=== PATIENT | male | born 1985 | race Two or more races ===

== ENCOUNTER 2019-07-04 23:04 | Emergency (ER) | payer OTHER ==
[~2019-07-04] VITALS: Ht 165.1 cm; Wt 72.6 kg
== END 2019-07-05 00:40 ==
LOC: ER 23:06
DX: R07.89 Other chest pain (principal); I10 Essential (primary) hypertension

== ENCOUNTER 2020-02-24 01:09 | Emergency (ER) | payer MEDICAID, OTHER ==
[~2020-02-24] VITALS: Ht 170.2 cm; Wt 83.5 kg
--- NOTE | 2020-02-24 01:09 | NUR ---
PT AAOX4. AMBULATORY WITH STEADY GAIT. BIBRA, PER RA PT IS ETOH. PT IS AWAKE, ABLE TO ANSWER ALL QUESTIONS. NO ACUTE DISTRESS NOTED. PALCED IN BED 2, AT BEDSIDE.
--- NOTE | 2020-02-24 02:53 | NUR ---
Patient discharged to home in stable condition. Written and verbal after care instructions given. Patient verbalizes understanding of instruction. Pt ambulated in the ED with steady gait. vss.
[2020-02-24 05:40] VITALS: BP 137/72
== END 2020-02-24 05:40 | disposition home or self-care (01) ==
LOC: ER 01:11
DX: F10.129 Alcohol abuse with intoxication, unspecified (principal); I10 Essential (primary) hypertension; Y90.9 Presence of alcohol in blood, level not specified

== ENCOUNTER 2021-10-25 20:26 | Emergency (ER) | payer SELFPAY ==
[~2021-10-25] VITALS: Ht 177.8 cm; Wt 81.6 kg
--- NOTE | 2021-10-25 20:40 | NUR ---
SANTINO FROM THE [facility] FOR ETOH [id number]. PT AWAKE AND ALERT BREATHING EVEN AND UNLABORED. CHANGED INTO GOWN AND PLACED ON MONITOR AND V/S STABLE.
--- NOTE | 2021-10-25 21:36 | NUR ---
Patient discharged to home in stable condition. Written and verbal after care instructions given. Patient verbalizes understanding of instruction.
[2021-10-25 21:37] VITALS: BP 149/77
== END 2021-10-25 21:37 | disposition home or self-care (01) ==
LOC: ER 20:32
DX: F10.129 Alcohol abuse with intoxication, unspecified (principal); I10 Essential (primary) hypertension; Z60.2 Problems related to living alone; Y90.9 Presence of alcohol in blood, level not specified

== ENCOUNTER 2023-07-22 15:18 | Emergency (ER) | payer SELFPAY ==
[~2023-07-22] VITALS: Ht 177.8 cm; Wt 93.4 kg
[2023-07-22 16:41] LABS: BASOPHILS # (AUTO) 0.1 K/uL (0.0-0.2); EOSINOPHILS # (AUTO) 0.1 K/uL (0.0-0.7); HEMATOCRIT 43 % (39-51); HEMOGLOBIN 14.3 g/dL (13.5-17.5); LYMPHOCYTES # (AUTO) 2.6 K/uL (0.8-4.8); LYMPHOCYTES % (AUTO) 51.2 % (20.0-44.0); MEAN CORPUSCULAR HEMOGLOBIN 29 PG (26.0-33.0); MEAN CORPUSCULAR HGB CONC 34 g/dl (31.0-36.0); MEAN CORPUSCULAR VOLUME 87 fL (80-96); MONOCYTES # (AUTO) 0.5 K/uL (0.1-1.30); MONOCYTES % (AUTO) 10.7 % (2.0-12.0); NEUTROPHILS # (AUTO) 1.8 K/uL (1.8-8.9); NEUTROPHILS % (AUTO) 35.1 % (43.0-81.0); PLATELET COUNT (AUTO) 295 K/uL (150-450); RED BLOOD CELL COUNT(AUTO) 4.91 MIL/uL (4.5-6.0); RED CELL DISTRIBUTION WIDTH 14.7 % (11.5-15.0); WHITE BLOOD COUNT (AUTO) 5.1 K/uL (4.3-11.0)
[2023-07-22 17:49] LABS: CALCIUM, SERUM 8.7 mg/dL (8.5-10.1); CARBON DIOXIDE 22 mmol/L (21-32); CHLORIDE 108 mmol/L (98-107); CREATININE 1.2 mg/dL (0.6-1.3); GLUCOSE 137 mg/dL (74-106); POTASSIUM 3.3 mmol/L (3.5-5.1); SODIUM SERUM 144 mmol/L (136-145); UREA NITROGEN, BLOOD 13 mg/dL (7-18)
[2023-07-22 17:55] LABS: ALANINE AMINOTRANSFERASE 72 U/L (12-78); ALCOHOL, BLOOD 420 mg/dL (0-10); ALKALINE PHOSPHATASE 72 U/L (46-116); ASPARTATE AMINOTRANSFERASE 39 U/L (15-37); BILIRUBIN,DIRECT 0.1 mg/dL (0.0-0.2); BILIRUBIN,TOTAL 0.2 mg/dL (0.2-1.0); TOTAL PROTEIN, SERUM 7.9 g/dL (6.4-8.2)
[2023-07-22 17:56] LABS: ACETAMINOPHEN <10 ug/ml (10-30); SALICYLATE 0.8 mg/dL (2.8-20.0)
[2023-07-26 16:43] VITALS: BP 124/67; TEMP 98.6; O2SAT 97
== END 2023-07-22 19:05 | disposition home or self-care (01) ==
LOC: ER 15:20
DX: F10.129 Alcohol abuse with intoxication, unspecified (principal); I10 Essential (primary) hypertension; Z60.2 Problems related to living alone; Y90.8 Blood alcohol level of 240 mg/100 ml or more
CPT/HCPCS: 36415; 80048-TC; 80076-TC; 85025-TC; G0480